=== PATIENT | female | born 1955 ===

== ENCOUNTER 2017-12-23 13:37 | Emergency (ER) | payer OTHER ==
[2017-12-23 13:49] VITALS: BP 152/85; PULSE 92; TEMP 98; O2SAT 97
[2017-12-23] MEDS ORDERED: Oxycodone/Acetaminophen 5/325 mg Tab PO STA (14:14)
--- NOTE | 2017-12-23 14:25 | C.PDOC ---
History Of Present Illness 62 year old female presents to the ED for evaluation of right knee pain which has been ongoing for more than one month. Patient states she received an injection in her knee via her primary doctor. Patient has also been taking Ibuprofen 800mg and Diclofenac without significant relief. She denies fever, chills, chest pain, shortness of breath, or recent trauma/injuries. Time Seen by Provider: 12/23/17 13:52 Chief Complaint (Nursing): Lower Extremity Problem/Injury History Per: Patient History/Exam Limitations: no limitations Onset/Duration Of Symptoms: Days Current Symptoms Are (Timing): Still Present Additional History Per: Patient - Knee Description Of Injury: denies: Fell, Struck With Object, Struck Against Object Past Medical History Reviewed: Historical Data, Nursing Documentation, Vital Signs Vital Signs: Last Vital Signs Temp 98 F 12/23/17 13:46 Pulse 92 H 12/23/17 13:46 Resp 20 12/23/17 15:22 BP 152/85 H 12/23/17 13:46 Pulse Ox 97 12/23/17 15:16 - Medical History PMH: Arthritis, HTN, Hypercholesterolemia Surgical History: No Surg Hx Family History: States: Diabetes - Social History Hx Tobacco Use: No Hx Alcohol Use: No Hx Substance Use: No - Immunization History Hx Tetanus Toxoid Vaccination: No Hx Influenza Vaccination: Yes Hx Pneumococcal Vaccination: No Review Of Systems Constitutional: Negative for: Fever, Chills Cardiovascular: Negative for: Chest Pain Respiratory: Negative for: Shortness of Breath Musculoskeletal: Positive for: Other (right knee pain ) Physical Exam - Physical Exam Additional Physical Exam Comments: Constitutional: No acute distress. Head: Atraumatic. Eyes: PERRL. Neck: Supple. Musculoskeletal: Generalized swelling to right knee with full ROM. No focal bony tenderness. Skin: No rash. Neurologic: Alert, no focal deficit. ED Course And Treatment O2 Sat by Pulse Oximetry: 97 (on RA) Pulse Ox Interpretation: Normal - Other Rad right knee XR X-Ray: Interpreted by Me, Viewed By Me, Read By Radiologist Interpretation: PROCEDURE: Right Knee Radiographs. HISTORY: knee pain. COMPARISON: 09/09/2017. FINDINGS: BONES: No fracture or interval lytic lesion. Sub cm sclerotic focus on lateral view primarily appreciated projecting of the condyles- no significant change. JOINTS: Osteoarthrosis. JOINT EFFUSION: He minimal suprapatellar joint effusion not excluded. Large joint effusion suggested. Appearance is similar in this regard. OTHER FINDINGS: None. IMPRESSION: Osteoarthrosis -patellofemoral and medial femoral tibial compartments most notably affected. Medical Decision Making Medical Decision Making: Impression: 62 year old female with right knee pain Plan: * Right knee XR * Percocet PO * reassess and disposition Progress: Right knee XR ordered and reviewed. Patient given Percocet PO. Patient's [facility] records were reviewed. She does not have any previous entries. On re-examination, patient is resting comfortably, showing no signs of distress and reports an improvement in her symptoms. Patient is stable for discharge with Rx for Percocet. She is advised on risks of opiate abuse and verbalizes understanding. Patient is advised to follow up with orthopedic care/PMD within 1 -2 days for further evaluation. Patient is advised to return to the ED if her pain worsens and/or if new symptoms (which include but are not limited to) such as fever, chills, chest pain, shortness of breath arise. Disposition - Disposition Disposition: HOME/ ROUTINE Disposition Time: 15:13 Condition: STABLE Prescriptions: oxyCODONE/Acetaminophen [Percocet 5/325 mg Tab] 1 tab PO Q6 #10 tab Instructions: Osteoarthritis (DC) Forms: [employer] ([place]) - Clinical Impression Clinical Impression: Arthritis of knee - Scribe Statement The provider has reviewed the documentation as recorded by the Scribe (Gayathri Salas) Provider Attestation: All medical record entries made by the Scribe were at my direction and personally dictated by me. I have reviewed the chart and agree that the record accurately reflects my personal performance of the history, physical exam, medical decision making, and the department course for this patient. I have also personally directed, reviewed, and agree with the discharge instructions and disposition.
[2017-12-23] MEDS ORDERED: Oxycodone/Acetaminophen 5/325 mg Tab ONE (14:31)
--- NOTE | 2017-12-23 14:58 | RAD ---
Date of service: 12/23/2017 PROCEDURE: Right Knee Radiographs. HISTORY: knee pain COMPARISON: 09/09/2017 FINDINGS: BONES: No fracture or interval lytic lesion. Sub cm sclerotic focus on lateral view primarily appreciated projecting of the condyles- no significant change. JOINTS: Osteoarthrosis JOINT EFFUSION: He minimal suprapatellar joint effusion not excluded. Large joint effusion suggested. Appearance is similar in this regard. OTHER FINDINGS: None. IMPRESSION: Osteoarthrosis -patellofemoral and medial femoral tibial compartments most notably affected.
[2017-12-23 15:22] VITALS: RESP 20
== END 2017-12-23 15:22 | disposition home or self-care (01) ==
LOC: C.ER 13:37
DX: M13.861 Other specified arthritis, right knee (principal)